=== PATIENT | male | born 1960 | race Caucasian/White ===

== ENCOUNTER → 2017-02-03 | Outpatient (CLI) | payer OTHER ==
[~2017-02-03] MED LIST: COLACE 100100 MG/CAP PO; FAT BURNER; FENTANYL 50MCG TD; MEGESTROL ACETA40 MG PO; METHYLCOBALAMIN1 TA1 SL; MULTIPLE VITAMI1 CAP; NORCO 325 MG-7.1 TAB PO; OMEGA 31000 MG PO; OXYCONTIN 20MG20 MG PO; PAIN RELIEF; RESVERATROL PO; THERAPEUTIC VIT1 CAP PO; [UNRECOGNIZED DRUG - CODE] PO; [UNRECOGNIZED DRUG - OTHER]; [UNRECOGNIZED DRUG - OTHER] PO; [UNRECOGNIZED DRUG - OTHER] PO; [UNRECOGNIZED DRUG - OTHER] PO; [UNRECOGNIZED DRUG - OTHER] PO; [UNRECOGNIZED DRUG - OTHER] PO; [UNRECOGNIZED DRUG - OTHER] PO; [UNRECOGNIZED DRUG - OTHER] PO; [UNRECOGNIZED DRUG - OTHER] PO
== END ==
LOC: COL.RAD 07:15
DX: C18.9 Malignant neoplasm of colon, unspecified (principal)
CPT/HCPCS: Q9967

== ENCOUNTER → 2018-03-27 | Outpatient (CLI) | payer OTHER | LOC: COL.RAD 07:25 | DX: K76.9 Liver disease, unspecified (principal); Z85.038 Personal history of other malignant neoplasm of large intestine; Z90.81 Acquired absence of spleen; Z98.0 Intestinal bypass and anastomosis status | CPT/HCPCS: Q9967 ==

== ENCOUNTER → 2018-09-14 | Outpatient (CLI) | payer OTHER | LOC: COL.RAD 07:25 | DX: C18.6 Malignant neoplasm of descending colon (principal); N40.0 Benign prostatic hyperplasia without lower urinary tract symptoms; Z90.81 Acquired absence of spleen; Z90.49 Acquired absence of other specified parts of digestive tract | CPT/HCPCS: Q9967 ==